=== PATIENT | female | born 1975 ===

== ENCOUNTER 2018-08-01 11:45 | Emergency (ER) | payer MEDICARE, OTHER ==
[2018-08-01 12:46] LABS: BASO % 0.6 % (0.0-2.0); EOS # 0.2 K/uL (0.0-0.7); EOS % 3.5 % (0.0-4.0); LYMPH # 2.1 K/uL (1.0-4.3); MEAN CELL VOLUME 77.8 fL (81.0-99.0); MEAN CORPUSCULAR HGB CONC 32.1 g/dL (33.0-37.0); MEAN PLATELET VOLUME 8.7 fL (7.2-11.7); MONO # 0.6 K/uL (0.0-0.8); MONO % 9.2 % (0.0-10.0); NEUT # 3.3 K/uL (1.8-7.0); NEUT % 52.7 % (50.0-75.0); RBC 4.01 Mil/uL (3.80-5.20); RED CELL DISTRIBUTION WIDTH 17.8 % (11.5-14.5); WHITE BLOOD COUNT 6.3 K/uL (4.8-10.8)
[2018-08-01 12:49] LABS: HCG,QUALITATIVE URINE NEGATIVE (NEGATIVE)
[2018-08-01 12:51] LABS: SQUAMOUS EPITHIAL 4 /hpf (0-5); URINE BACTERIA RARE (<OCC); URINE BILIRUBIN NEGATIVE (NEGATIVE); URINE BLOOD NEGATIVE (NEGATIVE); URINE CLARITY Clear (Clear); URINE COLOR Yellow (YELLOW); URINE GLUCOSE (UA) NORMAL (Normal); URINE LEUKOCYTE ESTERASE TRACE Leu/uL (Negative); URINE PROTEIN NEGATIVE (NEGATIVE); URINE UROBILINOGEN NORMAL mg/dL (0.2-1.0)
--- NOTE | 2018-08-01 12:56 | RAD ---
Date of service: 08/01/2018 PROCEDURE: CHEST RADIOGRAPH, 1 VIEW HISTORY: SOB COMPARISON: None available. FINDINGS: LUNGS: The lungs are well inflated and clear. PLEURA: No pneumothorax or pleural effusion. CARDIOVASCULAR: The heart is normal in size. No aortic atherosclerotic calcifications present. OSSEOUS STRUCTURES: Within normal limits for the patient's age. VISUALIZED UPPER ABDOMEN: Normal. OTHER FINDINGS: None. IMPRESSION: No active pulmonary disease.
[2018-08-01 12:58] LABS: ALBUMIN 3.8 g/dL (3.5-5.0); ALT/SGPT 29 U/L (9-52); AST/SGOT 30 U/L (14-36); BLOOD UREA NITROGEN 8 mg/dL (7-17); CALCIUM 8.6 mg/dl (8.6-10.4); GFR NON-AFRICAN AMERICAN > 60
[2018-08-01 12:59] VITALS: O2SAT 100
[2018-08-01 13:02] LABS: BARBITURATES, UR NEGATIVE (NEGATIVE); BENZODIAZEPINES, UR NEGATIVE (NEGATIVE); OPIATES, UR NEGATIVE (NEGATIVE); PHENCYCLIDINE, UR NEGATIVE (NEGATIVE)
[2018-08-01 13:13] LABS: B-TYPE NATRIURETIC PEPTIDE 74.3 pg/mL (0-450); CK-MB 0.68 ng/mL (0.0-3.38)
--- NOTE | 2018-08-01 13:19 | C.PDOC ---
History Of Present Illness 42 years old female brought to ED for evaluation of intermittent shortness of breath with exertion that began more than a year ago. Patient also reports intermittent chest tightness and throbbing from mid to right sided chest wall a ssociated with numbness and tingling sensation of left arm and hand that began 2-3 months ago. Patient states she experienced an episode today which prompted the ED visit. Patient also states she has been seen by her PMD, multiple labs were done and she was referred to see a cardiology/pulmonary but has not done so yet. Patient also reports taking klonopin and muscle relaxants earlier today. Time Seen by Provider: 08/01/18 12:05 Chief Complaint (Nursing): Chest Pain History Per: Patient History/Exam Limitations: no limitations Onset/Duration Of Symptoms: Hrs, Intermittent Episodes Current Symptoms Are (Timing): Still Present Modifying Factors: None Exacerbating Factors: Exertion Alleviating Factors: None Recent travel outside of the [place]: No Past Medical History Reviewed: Historical Data, Nursing Documentation, Vital Signs Vital Signs: Last Vital Signs Temp Pulse 93 H 08/01/18 12:59 Resp 19 08/01/18 12:59 BP 107/52 L 08/01/18 12:59 Pulse Ox 100 08/01/18 12:59 - Medical History PMH: Anxiety, COPD, Gastritis Surgical History: Cholecystectomy Family History: States: No Known Family Hx - Social History Hx Alcohol Use: No Hx Substance Use: No - Immunization History Hx Tetanus Toxoid Vaccination: No Hx Influenza Vaccination: No Hx Pneumococcal Vaccination: No Review Of Systems Constitutional: Negative for: Fever, Chills Cardiovascular: Positive for: Other (Right sided chest tightness and throbbing ) Respiratory: Positive for: Shortness of Breath Gastrointestinal: Negative for: Nausea, Vomiting, Diarrhea Skin: Negative for: Rash Neurological: Positive for: Numbness (Left arm and hand ). Negative for: Weakness Physical Exam - Physical Exam Appears: Non-toxic, No Acute Distress, Other (Drowsy. ) Skin: Normal Color, Warm, Dry, No Rash Head: Atraumatic, Normacephalic Eye(s): bilateral: Normal Inspection, PERRL, EOMI Oral Mucosa: Moist Neck: Normal ROM, Supple Chest: Symmetrical, No Tenderness Cardiovascular: Rhythm Regular Respiratory: Normal Breath Sounds, No Rales, No Rhonchi, No Wheezing Gastrointestinal/Abdominal: Normal Exam, Bowel Sounds (Active ), Soft, No Tenderness Extremity: Normal ROM, Pedal Edema (Trace pitting edema of lower ) Extremity: Bilateral: Other (Trace pitting edema of lower extremities ) Pulses: Left Dorsalis Pedis: Normal, Right Dorsalis Pedis: Normal Neurological/Psych: Oriented x3 (Alert), Normal Speech (Able to speak in full sentences ) Gait: Steady ED Course And Treatment - Laboratory Results Result Diagrams: 08/01/18 12:42 08/01/18 12:42 O2 Sat by Pulse Oximetry: 100 (RA) Pulse Ox Interpretation: Normal - Other Rad CXR X-Ray: Viewed By Me, Read By Radiologist Interpretation: Date of service: 08/01/2018. PROCEDURE: CHEST RADIOGRAPH, 1 VIEW. HISTORY: SOB. COMPARISON: None available. FINDINGS: LUNGS: The lungs are well inflated and clear. PLEURA: No pneumothorax or pleural effusion. CARDIOVASCULAR: The heart is normal in size. No aortic atherosclerotic calcifications present. OSSEOUS STRUCTURES: Within normal limits for the patient's age. VISUALIZED UPPER ABDOMEN: Normal. OTHER FINDINGS: None. IMPRESSION: No active pulmonary disease. Progress Note: Administered IV Fluids. Ordered Blood work, CXR, and urinalysis. Medical Decision Making Medical Decision Making: blood work shows microcytic anemia - patient epxressed concern in taking PO iron due to history of chronic constipation. Patient instructed to at least take multivitamin. Disposition Counseled Patient/Family Regarding: Studies Performed, Diagnosis, Need For Followup - Disposition Referrals: Donato Cuellar MD [Staff Provider] - Disposition: HOME/ ROUTINE Disposition Time: 13:30 Condition: STABLE Additional Instructions: FOLLOW UP WITH YOUR DOCTOR IN 1-2 DAYS TAKE DAILY MULTIVITAMIN RETURN TO ER IF YOU HAVE ANY CONCERNING SYMPTOMS Forms: [employer] (Fijian), General Discharge Instructions Print Language: KYRGYZ - POA Present On Arrival: None - Clinical Impression Clinical Impression: Anemia - Scribe Statement The provider has reviewed the documentation as recorded by the Anujibeulalio Gomez All medical record entries made by the Scribe were at my direction and personally dictated by me. I have reviewed the chart and agree that the record accurately reflects my personal performance of the history, physical exam, medical decision making, and the department course for this patient. I have also personally directed, reviewed, and agree with the discharge instructions and disposition.
[2018-08-01 13:36] VITALS: BP 95/50; PULSE 90; RESP 20; TEMP 97.9
--- NOTE | 2018-08-04 09:35 | CARD ---
APPROVED REPORT Date of service: 08/01/2018 EKG Measurement Heart [id number] <Conclusion> Normal sinus rhythm Normal ECG
== END 2018-08-01 13:44 | disposition home or self-care (01) ==
LOC: C.ER 11:45
DX: D64.9 Anemia, unspecified (principal)
CPT/HCPCS: 71045; 80053; 81001; 82550; 82553; 83880; 84484; 84703; 85025; 99284; G0480